=== PATIENT | female | born 1960 | race Caucasian/White ===

== ENCOUNTER 2020-08-06 10:45 | Outpatient (CLI) | payer BC, SELFPAY ==
--- NOTE | ~2020-08-06 | XR_ITS ---
XR hand RT min 3V DATE: 08/06/2020 11:11 INDICATION: Injury from fall 3 weeks ago. Patient can't bend fifth digit. TECHNIQUE: 3 views of right hand COMPARISON: None FINDINGS: No fracture or dislocation, periosteal reaction or bone destruction. No radiopaque soft tis symone foreign body or subcutaneous emphysema. Joint spaces are preserved. No erosive changes. IMPRESSION: Negative Reviewed, dictated and finalized at location B. IMPRESSION: Negative
== END 2020-08-06 10:46 | disposition home or self-care (01) ==
PROVIDERS: PCP Internal Medicine; Visit Provider Plastic Surgery
DX: S62.606A Fracture of unspecified phalanx of right little finger, initial encounter for closed fracture (principal)
CPT/HCPCS: 73130

== ENCOUNTER 2020-08-15 09:21 | Outpatient (CLI) | payer BC, SELFPAY ==
--- NOTE | ~2020-08-15 | MR_ITS ---
EXAMINATION: MR hand RT wo con DATE: 08/15/2020 10:49 INDICATION: Rupture of the right fifth flexor digitorum superficialis and profundus post fall one mon th prior TECHNIQUE: Magnetic resonance imaging (MRI) of the right hand was performed without intravenous contr ast to include the metacarpals and digits. Sequences included axial, sagittal and coronal T1-weighted FSE and T2-weighted FS FSE. COMPARISON: None FINDINGS: There is a full-thickness tear of the distal aspect of the fifth flexor digitorum profundus tendon wi th distal tear margin is located at the level of the A4 ifrah at the diaphysis of the middle phalanx . The tendon is retracted proximally as well as reflected an additional 2 cm back proximally along th e ulnar margin of the flexor tendons of the fourth digit at the level of the metacarpals. The distal most extent of the torn tendon at the point of reflection is approximately 1.7 cm proximal to the lev el of the fifth metacarpophalangeal joint. The fifth flexor digitorum superficialis tendon appears to remain intact. The remaining flexor tendons as well as extensor tendons of the hand are normal. The joint spaces are normal. The collateral ligament complex at the metacarpophalangeal and interphalange al joint spaces are normal. There is likely reactive soft tissue edema at the palmar aspect of the isabel nd surrounding the flexor tendons distal to the carpal tunnel. Bone alignment is normal. Normal bone marrow signal throughout. IMPRESSION: 1. Full-thickness tear and proximal retraction of the fifth flexor digitorum profundus tendon Reviewed, dictated and finalized at location B. IMPRESSION: 1. Full-thickness tear and proximal retraction of the fifth flexor digitorum pr ofundus tendon
== END 2020-08-15 09:22 | disposition home or self-care (01) ==
PROVIDERS: PCP Internal Medicine; Visit Provider Plastic Surgery
DX: S66.196A Other injury of flexor muscle, fascia and tendon of right little finger at wrist and hand level, initial encounter (principal); S66.116A Strain of flexor muscle, fascia and tendon of right little finger at wrist and hand level, initial encounter
CPT/HCPCS: 73218

== ENCOUNTER 2020-09-25 01:31 | Outpatient (CLI) | payer BC, SELFPAY ==
[2020-09-26 14:16] LABS: SARS-CoV-2 RNA PCR Negative
== END 2020-09-25 01:32 | disposition home or self-care (01) ==
LOC: ANHCOVIDDT 01:31
PROVIDERS: PCP Internal Medicine; Visit Provider Internal Medicine Gastroenterology
DX: Z01.818 Encounter for other preprocedural examination (principal); Z20.828 Contact with and (suspected) exposure to other viral communicable diseases
CPT/HCPCS: 87635; C9803; U0003

== ENCOUNTER 2020-09-29 00:18 | Day surgery (SDC) | payer BC, SELFPAY ==
[2020-09-21 13:49] VITALS: BMI 29.3
[2020-09-29 07:12] VITALS: BP 125/72; PULSE 57; RESP 18; TEMP 36.5; O2SAT 100; BMI 29.2
[2020-09-29] MEDS: LACTATED RINGERS 1,000 ML 150 ML IV CONT (07:22)
--- NOTE | 2020-09-29 07:51 | WPDANESEPPF ---
Anes - Initial Pre Proc Eval Procedure: Operation Date: 09/29/20 08:00 Proposed Procedures p Screening Colonoscopy - Jose Roberto Mcmahon MD Date/Time: 09/29/20 07:51 Surgeon: Jose Roberto Mcmahon MD Pre Op Diagnosis: neoplasm screening Patient Data Age: 60 Gender: F Height: 5 ft 7 in Weight: 84.7 kg Last Vital Signs Temp 36.5 C 09/29/20 07:12 Pulse 57 L 09/29/20 07:12 Resp 18 09/29/20 07:12 BP 125/72 09/29/20 07:12 Pulse Ox 100 09/29/20 07:12 Allergies Allergy/AdvReac Type Severity Reaction Status Date / Time metformin Allergy Mild diarrhea Verified 09/29/20 07:10 Home Medications Medication Instructions Recorded Confirmed Type atorvastatin 40 mg tablet 40 mg PO DAILY 90 Days #90 tablet 09/22/20 09/22/20 Rx duloxetine 60 mg capsule,delayed 60 mg PO DAILY 360 Days #360 cap 09/22/20 09/22/20 Rx release quetiapine 100 mg tablet 100 mg PO DAILY 90 Days #90 tablet 09/22/20 09/22/20 Rx quetiapine 200 mg tablet 200 mg PO QPM 90 Days #90 tablet 09/22/20 09/22/20 Rx Patient hx anesthesia problems: none Family hx anesthesia problems: none PMFSH Past Medical History Medical History (Updated 09/29/20 @ 07:51 by Bobby Degroot MD) HTN (hypertension) Nystagmus due to benign paroxysmal positional vertigo Overweight Tear of tendon of right upper extremity Family History Family History Father Cerebrovascular accident, Onset Age: 65 Patient's father is Family history of coronary artery disease Mother Family history of malignant neoplasm of breast in first degree relative Sibling Family history of heart disease in male family member before age 55 Social History Social History Smoking status: Never smoker Second hand tobacco smoke exposure: No Alcohol intake: current Living arrangements: with family Spiritual care concerns: No Anes - Eval Final PreProcedure Day of Procedure 09/29/20 07:51 Patient weight: overweight Heart: regular rate and rhythm Lungs: clear to auscultation Airway: Mallampati scale class II Last oral intake: >/= 8 hours ASA classification: II Emergent: no Anesthetic plan: proceed Anesthesia type and monitoring: general GIVS and standard monitoring Informed Consent: The patient's anesthetic plan and its attendant risks and benefits were discussed with the patient/family/POA. Questions were solicited and answers provided to the satisfaction of the patient/family/POA.
--- NOTE | 2020-09-29 08:07 | WPDGICN ---
Assessment and Plan Assessment and plan (1) Encounter for screening colonoscopy: Code(s): Z12.11 - Encounter for screening for malignant neoplasm of colon Status: Acute Assessment and Plan: Patient presents for screening colonoscopy appears to be at average risk for colon polyps. Further recommendations will be given after endoscopy. GI Consult Note Consult date/time: 09/29/20 08:07 HPI: Khurram Lambert is a 60 year old female Seen in evaluation at the request of Dr. Eliseo Cohn. Patient presents for neoplasia screening colonoscopy. Her current weight appetite bowel movements are normal. She has been in general good health. She denies any blood in her stools. Her family history is noncontributory. Review of Systems Review of Systems: All systems reviewed & are unremarkable except as noted in HPI and below PMFSH Past Medical History Medical History (Updated 09/29/20 @ 08:09 by Jose Roberto Mcmahon MD) HTN (hypertension) Nystagmus due to benign paroxysmal positional vertigo Overweight Tear of tendon of right upper extremity Family History Family History Father Cerebrovascular accident, Onset Age: 65 Patient's father is Family history of coronary artery disease Mother Family history of malignant neoplasm of breast in first degree relative Sibling Family history of heart disease in male family member before age 55 Social History Social History Smoking status: Never smoker Second hand tobacco smoke exposure: No Alcohol intake: current Living arrangements: with family Spiritual care concerns: No Meds Home Medications and Allergies Home Medications Medication Instructions Recorded Confirmed Type atorvastatin 40 mg tablet 40 mg PO DAILY 90 Days #90 tablet 09/22/20 09/22/20 Rx duloxetine 60 mg capsule,delayed 60 mg PO DAILY 360 Days #360 cap 09/22/20 09/22/20 Rx release quetiapine 100 mg tablet 100 mg PO DAILY 90 Days #90 tablet 09/22/20 09/22/20 Rx quetiapine 200 mg tablet 200 mg PO QPM 90 Days #90 tablet 09/22/20 09/22/20 Rx Allergies Allergy/AdvReac Type Severity Reaction Status Date / Time metformin Allergy Mild diarrhea Verified 09/29/20 07:10 Vital Signs Vital Signs - 24 hr 09/29/20 07:12 Temperature 97.7 F Pulse Rate 57 L Respiratory Rate 18 Blood Pressure 125/72 Pulse Oximetry 100 Exam Narrative: Exam Narrative: Physical exam reveals patient to be alert. Vital signs stable. HEENT exam unremarkable. Lungs are clear to auscultation and percussion. Heart is without murmur or extra sounds. Abdominal exam bowel sounds are present soft nontender with no organomegaly. Digital external rectal exam is normal.
[2020-09-29 08:32] VITALS: BP 109/70; PULSE 62; RESP 16; O2SAT 100
[2020-09-29 08:42] VITALS: BP 118/69; PULSE 59; RESP 17; O2SAT 99
[2020-09-29 08:52] VITALS: BP 130/72; PULSE 56; RESP 14; O2SAT 100
== END 2020-09-29 09:02 | disposition home or self-care (01) ==
PROVIDERS: PCP Internal Medicine; Visit Provider Internal Medicine Gastroenterology
PROC: 0DJD8ZZ Inspection of Lower Intestinal Tract, Via Natural or Artificial Opening Endoscopic (ICD-10-PCS; CPT 45378; principal; 2020-09-29 08:00)
DX: Z12.11 Encounter for screening for malignant neoplasm of colon (principal); K64.8 Other hemorrhoids; I10 Essential (primary) hypertension
CPT/HCPCS: 45378; J2704; J7120

== ENCOUNTER 2020-10-11 15:15 | Outpatient (CLI) | payer BC, SELFPAY ==
--- NOTE | ~2020-10-11 | MM_ITS ---
EXAMINATION: MM screening kristian BI w edel HISTORY: Screening TECHNIQUE: Craniocaudal and mediolateral oblique 3-D tomosynthesis images were obtained and synthetic 2-D images were generated. CAD analysis was submitted and interpreted. COMPARISON: Comparison to multiple prior studies sequentially, with oldest reviewed study dated 11/14. BREAST PARENCHYMAL COMPOSITION: There are scattered areas of fibroglandular density. FINDINGS: There is no evidence of suspicious mass, calcification, or architectural distortion to sugg est malignancy in either breast. There has been no suspicious interval change. IMPRESSION: 1. No mammographic evidence of malignancy. 2. Recommend routine screening mammography in one year. BI-RADS Category 1: Negative Reviewed, dictated and finalized at location A. HER OPERATOR
== END 2020-10-11 15:16 | disposition home or self-care (01) ==
LOC: ANHIMG 15:16
PROVIDERS: PCP Internal Medicine; Visit Provider Internal Medicine
DX: Z12.31 Encounter for screening mammogram for malignant neoplasm of breast (principal)
CPT/HCPCS: 77063; 77067

== ENCOUNTER 2023-01-09 09:39 | Outpatient (CLI) | payer BC, SELFPAY ==
--- NOTE | ~2023-01-09 | MM_ITS ---
EXAMINATION: MM screening kristian BI w edel HISTORY: Screening mammogram, family history of breast cancer in her mother. TECHNIQUE: Craniocaudal and mediolateral oblique 3-D tomosynthesis images were obtained and synthetic 2-D images were generated. CAD analysis was submitted and interpreted. COMPARISON: 10/11/2020, 09/29/2019, 03/20/2018 BREAST PARENCHYMAL COMPOSITION: There are scattered areas of fibroglandular density. FINDINGS: No suspicious mass, calcification, or architectural distortion are identified in either jairo ast to suggest malignancy. There has been no suspicious interval change. IMPRESSION: 1. No mammographic evidence of malignancy. 2. Recommend routine screening mammography in one year. BI-RADS Category 1: Negative Reviewed, dictated and finalized at location A. NCE TEACHER
== END 2023-01-09 09:40 | disposition home or self-care (01) ==
PROVIDERS: PCP Family Medicine; Visit Provider Family Medicine
DX: Z12.31 Encounter for screening mammogram for malignant neoplasm of breast (principal)
CPT/HCPCS: 77063; 77067

== ENCOUNTER 2025-01-12 15:09 | Outpatient (CLI) | payer MEDICARE, SELFPAY ==
--- NOTE | ~2025-01-12 | MM_ITS ---
EXAMINATION: MM screening kristian BI w edel HISTORY: Screening mammogram, family history of breast cancer in her mother. TECHNIQUE: Craniocaudal and mediolateral oblique 3-D tomosynthesis images were obtained and synthetic 2-D images were generated. CAD analysis was submitted and interpreted. COMPARISON: 01/09/2023, 10/11/2020, 09/29/2019 BREAST PARENCHYMAL COMPOSITION:Not Dense. There are scattered areas of fibroglandular density. FINDINGS: No suspicious mass, calcification, or architectural distortion are identified in either jairo ast to suggest malignancy. There has been no suspicious interval change. IMPRESSION: No mammographic evidence of malignancy. Recommend routine screening mammography in one year. BI-RADS Category 1: Negative Reviewed, dictated and finalized at location .
--- OUTSIDE RECORDS SUMMARY | 2025-01-12 17:48 | XMS_ITS | Clinical Summary ---
Author Organization [facility] Address [address] [place] [id number] Care Team Providers Care Service Cashier Name Role Phone None, Provider MD Primary Care Provider Unavaila ble Allergies No known active allergies Social History Tobacco Use Types Packs/Day Years Used Date Smoking Tobacco: Never Assessed Comments Unknown Sex and Gender Information Value Date Recorded Sex Assigned at Not on file Legal Sex Female 8:14 PM CDT Gender Identity Not on file Sexual Orientation Not on file Last Filed Vital Signs Vital Sign Reading Time Taken Comments Blood Pressure 130/64 11/01/2020 7:58 AM 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 Pulse 80 11/01/2020 7:58 AM 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 Temperature 36.3 C (97.4 F) 11/01/2020 7:58 AM 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 Respiratory Rate 16 11/01/2020 7:58 AM 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 Oxygen Saturation 98% 11/01/2020 7:58 AM 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 Inhaled Oxygen Concentration - - Weight 83.9 kg (185 lb) 10/31/2020 6:55 PM 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 Height 170.2 cm (5' 7 ) 10/31/2020 6:55 PM 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 Body Mass Index 28.98 10/31/2020 6:55 PM [employer]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 Plan of Treatment Health Maintenance Due Date Last Done Comments Colorectal Cancer Screening Colonoscopy (10 Years) 1959 Hepatitis C 1977 Mammogram Screening 1999 Zoster Vaccines (2 of 2) 12/03/2020 10/08/2020 COVID-19 Vaccine (1 - 2023-2 5 season) 2024 Influenza Adult (#1) 2024 08/08/2020 Dexa Scan (General) 2024 Pneumococcal Vaccine: 65+ Ye ars (2 of 2 - PCV) 2024 10/08/2020 DTaP, Tdap and Td Vaccines ( 2 - Td or Tdap) 10/08/2030 10/08/2020 RSV Immunization or 60+ Years (1 - 1-dose 75+ series) 2034 Pneumococcal Vaccine: Pediat rics (0 to 5 Years) and At-Risk Patients (6 to 64 Years) Aged Out 10/08/2020 No longer eligi ble based on patient's age to complete this topic Meningococcal B Vaccine Aged Out No l onger eligible based on patient's age to complete this topic Meningococcal Vaccine Aged Out No joel flores eligible based on patient's age to complete this topic RSV Immunizations Under 20 Months Aged Out No longer eligible based on patient's age to complete this topic Insurance Care Teams Service Cashier Relationship Specialty Start Date End Date None, Provider, PCP - General 10/31/20
== END 2025-01-12 15:10 | disposition home or self-care (01) ==
LOC: ANHIMG 15:12
PROVIDERS: PCP Family Medicine; Visit Provider Family Medicine
DX: Z12.31 Encounter for screening mammogram for malignant neoplasm of breast (principal)
CPT/HCPCS: 77063; 77067